=== PATIENT | female | born 1935 | race Caucasian/White ===

== ENCOUNTER 2018-06-23 07:58 | Inpatient (IN) | payer OTHER ==
[2018-06-23] MEDS ORDERED: ALTEPLASE 2 MG VIAL IVP PRN (10:22)
[2018-06-23] MEDS ORDERED: NALOXONE HCL 0.4 MG/ML INJ IVP PRN (10:22)
[2018-06-23] MEDS ORDERED: MIDAZOLAM 2 MG/2 ML VIAL IVP PRN (10:22)
[2018-06-23] MEDS ORDERED: HEPARIN 10,000 UNIT/10 ML MDV (1,000 UNIT/ML) IVP PRN (10:22)
[2018-06-23] MEDS ORDERED: GLUCAGON HCL 1 MG VIAL IVP PRN (10:22)
[2018-06-23] MEDS ORDERED: FLUMAZENIL 0.5 MG/5 ML MDV IVP PRN (10:22)
[2018-06-23] MEDS ORDERED: MEPERIDINE 25 MG/ML SYR IVP PRN (10:22)
[2018-06-23] MEDS ORDERED: ceFAZolin 2 GM/DEXTROSE 100 ML IV ONE (10:22)
[2018-06-23] MEDS ORDERED: PROTAMINE SULFATE 50 MG/5 ML VIAL IVP PRN (10:22)
--- NOTE | 2018-06-23 10:28 | PDRADPRE ---
Radiology History & Physical Indication for procedure: other (Symptomatic liver cyst) Home medications: MARCO-CITRATE PLUS VITAMIN D TAB 1,200 mg PO TID 06/19/18 [Last Taken Unknown] Dha Bradley 100 mg PO DAILY 06/19/18 [Last Taken Unknown] Iron 67 mg PO DAILY 06/19/18 [Last Taken Unknown] Levothyroxine Sodium 88 mcg PO DAILY 06/19/18 [Last Taken Unknown] Magnesium 250 mg PO DAILY 06/19/18 [Last Taken Unknown] Melatonin 5 mg 5 mg PO HS 06/19/18 [Last Taken Unknown] Multivitamin (*) 1 mg PO 06/19/18 [Last Taken Unknown] Sertraline HCl 50 mg PO DAILY 06/19/18 [Last Taken Unknown] amLODIPine BESYLATE 5 mg PO Q8HRS 06/19/18 [Last Taken Unknown] Allergies/Adverse Reactions: NSAIDS (Non-Steroidal Anti-Inflamma Allergy (Unknown, Verified 06/23/18 10:17) ANDRÉS Inhibitors Allergy (Verified 06/23/18 10:17) Beta-Blockers (Beta-Adrenergic Bloc Allergy (Verified 06/23/18 10:17) glipizide [From Glucotrol] Allergy (Verified 06/23/18 10:17) guaifenesin [From Robitussin] Allergy (Verified 06/23/18 10:17) hydrochlorothiazide Allergy (Verified 06/23/18 10:17) levofloxacin Allergy (Verified 06/23/18 10:17) nitrofurantoin [From Macrobid] Allergy (Verified 06/23/18 10:17) paroxetine Allergy (Verified 06/23/18 10:17) verapamil Allergy (Verified 06/23/18 10:17) Codeine Derivatives Allergy (Uncoded 06/23/18 10:17) Sulfa drugs Allergy (Uncoded 06/23/18 10:17) Mental status: A&Ox3 Heart exam: regular rate and rhythm Lungs exam: clear to auscultation Mallampati Score: Class 1
--- NOTE | 2018-06-23 10:29 | PDPROPOC ---
Sedation Plan of Care Sedation Plan of Care: vital signs stable, mental status noted, patient educated of risks, benefits, alternatives, patient can tolerate sedation ASA Classification: ASA 1 Planned drugs: fentanyl, midazolam Mallampati Score: Class 1 Mallampati Reference Image: Patient passed 3-3-2 rule?: Yes
[2018-06-23] MEDS ORDERED: NS 1,000 ML IV SCH ×2 (10:30→16:00)
[2018-06-23] MEDS ORDERED: ETHYL ALCOHOL 98% 5 ML AMP MISC ONE (10:45)
[2018-06-23] MEDS: fentaNYL 100 MCG/2 ML INJ IVP PRN ×2 (11:14→13:33)
[2018-06-23] MEDS ORDERED: IOPAMIDOL (ISOVUE-300) 100 ML BTL ONE (11:16)
[2018-06-23] MEDS ORDERED: LIDOCAINE 1% 300 MG/30 ML SDV ONE (11:24)
[2018-06-23] MEDS ORDERED: HYDROCODONE/APAP 5/325 TAB ONE (13:30)
[2018-06-23] MEDS ORDERED: fentaNYL 100 MCG/2 ML INJ ONE (13:30)
[2018-06-23] MEDS ORDERED: ONDANSETRON 4 MG/2 ML VIAL IVP PRN (13:57)
--- NOTE | 2018-06-23 13:59 | PDRADPN ---
Radiology Procedure Note Date of Procedure: 06/23/18 Radiologist: Buster Fernandez Anesthesia: IV Sedation Pre-op Diagnosis: Liver cyst Post-op Diagnosis: Superinfected liver cystg Indication: Symptomatic large hepatic cyst Procedure: Aborted sclerotherapy, 8 Fr drain placement Finding(s): Upon access of large liver cyst, thick brown purulent fluid was encountered. 1800 mL was drained, sample sent to micro for culture. 8 Fr drain left in place to JVAC. Inf/Abcess present in the surg proc area at time of surgery?: Yes Depth: Organ Space (Liver cyst) EBL: Minimal Drains: Constavac
[2018-06-23] MEDS ORDERED: ONDANSETRON DISINTEGRATING 4 MG TAB PO PRN (15:47)
[2018-06-23] MEDS ORDERED: ACETAMINOPHEN 325 MG TAB PO PRN (15:47)
--- NOTE | 2018-06-23 16:33 | PDGENHP ---
History and Physical - Chief Complaint purulent drainage - History of Present Illness This is a 82 yo female with long hx of liver cysts of unclear etiology. The pt was to undergo sclerotherapy of her liver cysts but the procedure was stopped due to 1800 ml of purulent fluid upon access of a liver lesion. Subsequently a decision to admit for further mgmt and evaluation was made. The pt was recently hospitalized at [facility] for UTI. It is unclear what abx were started. Leading up to today, she felt her typical self and did not have fever, malaise, weakness , or other. She is currently resting and appears to be comfortable. There is no Leukocytosis. BP is stable. She is on 3 L O2 but says she typically has nocturnal hypoxemia of 2 L. She denies any resp sx. She denies n/v/d, abd pain. No CV symptoms. She has not had any recent travel she has not had exposure to farm animals she has a hx of thyroid nodule, but no diagnosis of malignancy She had a drain placed today and the drainage does not look purulent. Labs: WBC 6.88 PMHx: nocturnal hypoxemia liver cysts HTN multiple abx allergy Hypothyroidism Urinary retention Diverticulosis PSHx: liver cysts sclerotherapy tonsillectomy, hysterectomy, cholecystectomy SocHx: no tobacco or etoh use FmHx: HTN, CHF History Information - Allergies/Home Medication List Allergies/Adverse Reactions: NSAIDS (Non-Steroidal Anti-Inflamma Allergy (Unknown, Verified 06/23/18 10:17) ANDRÉS Inhibitors Allergy (Verified 06/23/18 10:17) Beta-Blockers (Beta-Adrenergic Bloc Allergy (Verified 06/23/18 10:17) glipizide [From Glucotrol] Allergy (Verified 06/23/18 10:17) guaifenesin [From Robitussin] Allergy (Verified 06/23/18 10:17) hydrochlorothiazide Allergy (Verified 06/23/18 10:17) levofloxacin Allergy (Verified 06/23/18 10:17) nitrofurantoin [From Macrobid] Allergy (Verified 06/23/18 10:17) paroxetine Allergy (Verified 06/23/18 10:17) verapamil Allergy (Verified 06/23/18 10:17) Codeine Derivatives Allergy (Uncoded 06/23/18 10:17) Sulfa drugs Allergy (Uncoded 06/23/18 10:17) Home Medications: Calcium Citrate/Vitamin D2 [Eugene-Citrate Plus Vitamin D Tab] 1,200 mg PO DAILY18 06/23/18 [Last Taken 06/22/18 18:00] Ferrous Sulfate [Iron] 325 mg PO DAILY@1500 06/23/18 [Last Taken 06/22/18 15:00] Levothyroxine [Synthroid 88 mcg (*)] 88 mcg PO DAILY06 06/23/18 [Last Taken 02/05 06:00] Magnesium Oxide [Magnesium] 250 mg PO DAILY@1500 06/23/18 [Last Taken 06/22/18 15:00] Melatonin [Melatonin 5 mg] 5 mg PO HS 06/23/18 [Last Taken 06/22/18] Multivitamins [Multivitamin (*)] 1 each PO DAILY18 06/23/18 [Last Taken 18:00] [place]-3 Fatty Acids [Fish Oil 1000 mg (*)] 1,000 mg PO DAILY 06/23/18 [Last Taken 06/23/18 07:00] Sertraline HCl [Zoloft 50mg (*)] 50 mg PO DAILY 06/23/18 [Last Taken 06/23/18 07 :00] amLODIPine BESYLATE [Amlodipine Besylate] 5 mg PO BID 06/23/18 [Last Taken 06/23 07:00] I have personally reviewed and updated: medical history, social history - Social History Smoking Status: Never smoked Review of Systems Review of Systems: ROS: 10pt was reviewed & negative except for what was stated in HPI & below Physical Exam Physical Exam: Temp Pulse Resp BP Pulse Ox 36.4 C 63 15 114/75 100 06/23/18 15:03 06/23/18 15:03 06/23/18 15:03 06/23/18 15:03 06/23/18 15:03 O2 (L/minute) 3 Constitutional: no apparent distress Eyes: PERRL Ears, Nose, Mouth, Throat: moist mucous membranes, hearing normal Cardiovascular: regular rate and rhythym, No edema Respiratory: no respiratory distress, no rales or rhonchi, clear to auscultation Gastrointestinal: normoactive bowel sounds, soft, non-tender abdomen, other ( drain in place. non purulent drainage noted) Skin: warm Musculoskeletal: full muscle strength Neurologic: AAOx3 Psychiatric: interacting appropriately, not anxious, not encephalopathic Lymph, Heme, Immunologic: No petechiae Assessment & Plan Assessment: #Liver cyst with concern for abscess -drainage from drain appears to be non purulent. -has been afebrile and negative ROS -ID following, will monitor off abx for now and await cultures #Hypoxemia with nocturnal hypoxemia -currently on 3 L. She likely does not need. Will wean #HTN: -cont Amlodipine #Hypothyroidism -cont Levothyroxine -She reports that her dose was increased about 4 weeks ago, will obtain TSH #Urinary retention SCD's
[2018-06-23] MEDS: ERTAPENEM 1 GM in NS 100 ML IV SCH (16:55)
[2018-06-23] MEDS: FERROUS SULFATE 325 MG TAB PO SCH (16:55)
[2018-06-23] MEDS: MULTIVITAMINS 1 EACH TAB PO SCH (16:55)
[2018-06-23] MEDS: [UNRECOGNIZED DRUG - OTHER] PO SCH (16:56)
[2018-06-23] MEDS: OXYCODONE/APAP 5/325 TAB PO PRN ×2 (17:18→21:27)
--- NOTE | 2018-06-23 18:36 | GCON ---
[f rep st] CONSULTATION INFECTIOUS DISEASE CONSULTATION. DATE OF CONSULTATION: 06/23/2018 REQUESTING PROVIDER: Dr. Buster Fernandez. REASON FOR CONSULTATION: Hepatic abscess. HISTORY OF PRESENT ILLNESS: Patient is an 82-year-old female with a long history of 1 giant cyst ove r the last 2 years, who I am asked to see in consultation for hepatic abscess. The patient has been undergoing sclerotherapy of her giant hepatic cyst at [facility] on a recurring basis. She descr ibes having a drain in place up until March of this year. That was the last episode of scleral therapy . She had been hospitalized at one point in time with fever and chills, with evaluation including to assess for infection in the cyst. Cultures on multiple occasions, which I reviewed in [facility] were n egative. Fever was ultimately attributed to urinary tract infection. The patient describes receivin g 3 different antibiotics orally. She was referred from her business support administrator to [facility] for repeat sclerotherapy today. However, sclerotherapy was aborted because upon access of the large liver cyst, thick brown purulent material was encountered with a volume of 1800 mL removed. She garcia s not describe having ongoing fever, chills, or night sweats. She has not had significant right uppe r quadrant pain. She does not feel ill otherwise. No urinary symptoms. She had traveled to [place] in 2004. No unusual animal exposures. Previous testing reviewed in [facility] shows a negative QuantiFE ALESSIO assay and negative Echinococcal antibody. She does describe losing a crown yesterday, but no oth er recent dental problems. Given the above findings, I was asked to assist in her ongoing management . PAST MEDICAL HISTORY: Multiple hepatic cysts, including giant hepatic cyst which has undergone scler otherapy on multiple occasions; etiology of cyst has remained unclear with 1 cytologic specimen in past being negative; nocturnal hypoxemia; hypertension; hypothyroidism; urinary retention requiring urinary self-catheterization; diverticulosis. PAST SURGICAL HISTORY: Sclerotherapy as above, cholecystectomy, hysterectomy, tonsillectomy. CURRENT MEDICATIONS: Calcium 1200 mg orally daily, ferrous sulfate 325 mg p.o. daily, Synthroid 88 m cg p.o. daily, magnesium 250 mg p.o. daily, melatonin 5 mg p.o. at bedtime, multivitamin p.o. daily, fish oil 1000 mg p.o. daily, Zoloft 50 mg p.o. daily, amlodipine 5 mg p.o. twice daily. ALLERGIES: Levofloxacin associated with arthropathy, nitrofurantoin, paroxetine, verapamil, sulfonam ides, hydrochlorothiazide, guaifenesin, glipizide, beta blockers, ANDRÉS inhibitors, nonsteroidals. SOCIAL HISTORY: Patient does not smoke or drink alcohol. She is a retired nurse. FAMILY HISTORY: Hypertension, congestive heart failure. REVIEW OF SYSTEMS: Outside of that noted in the HPI, the remainder of 10-system review is unremarkab le. PHYSICAL EXAMINATION: VITAL SIGNS: Temperature 36.1, heart rate 69, respiratory rate 16, blood pres sure 137/70, oxygen saturation 87% on room air. GENERAL: Patient is well nourished, well developed, in no acute distress. She appears nontoxic. HEENT: No scleral icterus, conjunctival injection, or conjunctival petechiae. Oropharynx shows moist mucous membranes with dentition in fair repair. The re is no nasal discharge. There is no tenderness over the sinuses. NECK: Supple without palpable l ymphadenopathy or thyromegaly. CHEST: Clear to auscultation bilaterally without adventitious sounds . The respiratory effort is normal. CARDIOVASCULAR: Regular rate and rhythm without murmurs, noble ps, or rubs. ABDOMEN: Soft, nontender, nondistended. Drain is present in the right upper quadrant with serous brown output. No purulence is noted in the KAY bulb. MUSCULOSKELETAL: No cyanosis, club jose alfredo, or edema. SKIN: No rashes present. No stigmata of endocarditis. Skin is warm and dry to [place] . NEUROLOGIC: Patient is alert and interacts appropriately. Cranial nerves II through XII grossl y intact. Sensation is grossly intact. Muscle tone and bulk are normal. LYMPHATICS: No cervical o r supraclavicular nodes. LABORATORY DATA: White blood cell count 6.9, hematocrit 37.4, platelets 159, neutrophils 44%, lympho cytes 43%. Gram stain shows 4+ white blood cells with no organisms being seen; I reviewed the materi al present grossly in the laboratory, which is consistent with purulent fluid. IMPRESSION: Hepatic abscess: Large volume of purulent material removed from prior large hepatic cys t cavity which has undergone sclerotherapy. Fluid draining into KAY bulb currently appears to be more serous in nature. I have confirmed the purulent character of this fluid by evaluation of the specim en in the laboratory. It is possible that she has developed superinfection of her hepatic cyst assoc iated with prior sclerotherapy. Most likely, this will be due to enteric juan, although it is somew hat unusual that a patient has no systemic symptoms such as fever or chills and is without leukocytos is. Other considerations would include infection from AFB or fungi (no previous cultures for these e ntities). Amebic liver abscess would also be a consideration, although prior aspirations have not divehi elded purulent material. RECOMMENDATIONS: 1. We will add AFB and fungal cultures onto specimen and laboratory. 2. Await culture data as available. 3. Blood cultures x2 sets. 4. Begin ertapenem 1 g IV q.24 hours after blood cultures obtained. 5. Will check Entamoeba histolytica antibody. 6. Further plan dependent on data as available and culture findings. Thank you for this consultation. We will continue to follow the patient with you. /[id number]/MODL
[2018-06-23] MEDS: amLODIPine BESYLATE 5 MG TAB PO SCH (21:26)
[2018-06-23] MEDS: MELATONIN 3 MG TAB PO SCH (21:27)
[2018-06-24] MEDS: LEVOTHYROXINE 88 MCG TAB PO SCH (05:41)
[2018-06-24 05:42] LABS: PLATELET COUNT 147 10^3/uL (150-400)
[2018-06-24] MEDS: ERTAPENEM 1 GM in NS 100 ML IV SCH (09:38)
[2018-06-24] MEDS: OMEGA-3 FATTY ACIDS 1,000 MG CAP PO SCH (09:38)
[2018-06-24] MEDS: SERTRALINE HCL 50 MG TAB PO SCH (09:40)
[2018-06-24] MEDS: OXYCODONE/APAP 5/325 TAB PO PRN ×2 (09:55→21:13)
[2018-06-24] MEDS: amLODIPine BESYLATE 5 MG TAB PO SCH ×2 (10:22→21:13)
--- NOTE | 2018-06-24 12:59 | HOSPPROG ---
Hospitalist Progress Note Assessment/Plan: #Hepatic abscess -cont Ertapenem -await cultures -ID following #Liver cysts #nocturnal hypoxemia -supplemental O2 nightly #HTN: -low BP this morning, Amlodipine held this a.m. #Hypothyroidism -cont Levothyroxine -TSH is at goal #Urinary retention, no retention reported today SCD's Inpatient while awaiting cultures Subjective: no cp or sob. no n/v/d. afebrile. Objective: Vital Signs Temp Pulse Resp BP Pulse Ox 37.2 C 74 12 122/59 H 91 L 06/24/18 11:21 06/24/18 11:21 06/24/18 11:21 06/24/18 11:21 06/24/18 11:21 Microbiology 06/23/18 12:00 Gram Stain - Final Liver - Aspirate Laboratory Results 06/24/18 04:44 06/24/18 04:44 06/23/18 06/24/18 06/25/18 05:59 05:59 05:59 Intake Total 120 Output Total 4325 1060 Balance -4205 -1060 - Physical Exam Constitutional: no apparent distress Eyes: PERRL, EOMI Ears, Nose, Mouth, Throat: moist mucous membranes, hearing normal Cardiovascular: regular rate and rhythym, No edema Respiratory: no respiratory distress, no rales or rhonchi, clear to auscultation Gastrointestinal: normoactive bowel sounds, soft, non-tender abdomen Skin: warm Musculoskeletal: full muscle strength Neurologic: AAOx3 Psychiatric: interacting appropriately, not encephalopathic Lymph, Heme, Immunologic: No petechiae ICD10 Worksheet Patient Problems: Problems Problem Status Onset Liver abscess Acute - ICD10 Problem Qualifiers (1) Liver abscess
--- NOTE | 2018-06-24 14:51 | PDMN ---
Medical Necessity Medical necessity: Pt meets INPT criteria per MD as of 06/24/18 and [facility] G[facility]ology GRG (hepatic abscess s/p drainage of purulent fluid upon access of a liver lesion; KAY drain placed with ongoing drainage noted; requiring IV Invanz).
--- NOTE | 2018-06-24 15:38 | ASMTCMCOM ---
CM Note CM Note Notes: Pt was admitted with a liver cyst abcess. She has a hx of liver cyst, HTN, diverticulitis. ID is following - pt is currently on ertapenum and cultures are pending. CM will follow for any d/c needs. Date Signed: 06/24/2018 03:37 PM Electronically Signed By:FINN Nath
--- NOTE | 2018-06-24 15:39 | PCMIDPN ---
Assessment/Plan: Assessment/Plan: * Hepatic abscess/infected hepatic cyst status post drainage: Cultures no growth to date. Most likely will be associated with enteric juan including potential for anaerobic juan. Also have sent Entamoeba histolytica antibody for completeness. Continue ertapenem in interim. Modify antibiotic therapy accordingly as culture results available. 06/24/18 15:36 Subjective: Patient feels fatigued today. Pain at drain insertion. Objective: Vital Signs Temp Pulse Resp BP Pulse Ox 37.2 C 74 12 122/59 H 91 L 06/24/18 11:21 06/24/18 11:21 06/24/18 11:21 06/24/18 11:21 06/24/18 11:21 Microbiology 06/23/18 12:00 Gram Stain - Final Liver - Aspirate Laboratory Results 06/24/18 04:44 06/24/18 04:44 06/23/18 06/24/18 06/25/18 05:59 05:59 05:59 Intake Total 120 Output Total 4325 1060 Balance -4205 -1060 Ertapenem # 2 Hepatic abscess 4+ white blood cells, Gram stain negative, culture no growth to date - Physical Exam General Appearance: alert, no apparent distress EENT: pharynx normal, No scleral icterus, No conjunctival petechiae Respiratory: lungs clear, No respiratory distress Cardiac/Chest: regular rate, rhythm Extremities: No inflammation Abdomen: non-tender, other (Clear brown fluid in KAY bulb), No distended ICD10 Worksheet Patient Problems: Problems Problem Status Onset Liver abscess Acute
--- NOTE | 2018-06-24 16:49 | SOAPPROG ---
SOAP Progress Note Assessment/Plan: Assessment: POD#1 drain placement liver cyst with viscous, brown, purulent fluid. Fluid has returned to thin, clear, yellow serous. Plan: OK to D/C with drain in place. Continue to monitor output and return to IR in one week for CT abdomen noncontrast to evaluate residual fluid/loculations and possible sclerotherapy and drain removal at that time. 06/24/18 16:46 Subjective: Denies subjective fever, chills, night sweats. Minimal pain at drain insertion site. Objective: Vital Signs Temp Pulse Resp BP Pulse Ox 37.2 C 74 12 122/59 H 91 L 06/24/18 11:21 06/24/18 11:21 06/24/18 11:21 06/24/18 11:21 06/24/18 11:21 Microbiology 06/23/18 12:00 Mycobacterial Smear (ED) - Final Liver - Aspirate 06/23/18 12:00 Gram Stain - Final Liver - Aspirate Laboratory Results 06/24/18 04:44 06/24/18 04:44 06/23/18 06/24/18 06/25/18 05:59 05:59 05:59 Intake Total 120 550 Output Total 4325 1060 Balance -4205 -510 Drain output now serous. ICD10 Worksheet Patient Problems: Problems Problem Status Onset Liver abscess Acute
[2018-06-24] MEDS: FERROUS SULFATE 325 MG TAB PO SCH (16:52)
[2018-06-24] MEDS: [UNRECOGNIZED DRUG - OTHER] PO SCH (18:16)
[2018-06-24] MEDS: MULTIVITAMINS 1 EACH TAB PO SCH (18:16)
--- NOTE | 2018-06-24 18:53 | SOAPPROG ---
SOAP Progress Note Assessment/Plan: Assessment:Plan: social visit appreciate IR and ID input her drain output is now serosanguineous and not purulent will follow on chart thank you Bony Kamara MD [phone] 06/24/18 18:52 Objective: Vital Signs Temp Pulse Resp BP Pulse Ox 36.6 C 64 14 146/53 H 91 L 06/24/18 16:00 06/24/18 16:00 06/24/18 16:00 06/24/18 16:00 06/24/18 16:00 Microbiology 06/23/18 12:00 Mycobacterial Smear (ED) - Final Liver - Aspirate 06/23/18 12:00 Gram Stain - Final Liver - Aspirate Laboratory Results 06/24/18 04:44 06/24/18 04:44 06/23/18 06/24/18 06/25/18 05:59 05:59 05:59 Intake Total 120 750 Output Total [id number] [facility] -4205 -840 ICD10 Worksheet Patient Problems: Problems Problem Status Onset Liver abscess Acute
[2018-06-24] MEDS: MELATONIN 3 MG TAB PO SCH (21:14)
[2018-06-25] MEDS: LEVOTHYROXINE 88 MCG TAB PO SCH (06:12)
[2018-06-25] MEDS: amLODIPine BESYLATE 5 MG TAB PO SCH (09:31)
[2018-06-25] MEDS: SERTRALINE HCL 50 MG TAB PO SCH (09:31)
[2018-06-25] MEDS: OMEGA-3 FATTY ACIDS 1,000 MG CAP PO SCH (09:31)
[2018-06-25] MEDS: ERTAPENEM 1 GM in NS 100 ML IV SCH (10:12)
--- NOTE | 2018-06-25 12:28 | ASMTCMCOM ---
CM Note CM Note Notes: Care Management chart review. Patient likely to discharge today, plan is to d/c with drain and follow up with IR in one week for CT and drain removal. CM spoke with RN, currently waiting on cultures. CM to follow. Current discharge plan: Home independent, likely today or tomorrow. Date Signed: 06/25/2018 12:27 PM Electronically Signed By:Destini Chavez
--- NOTE | 2018-06-25 13:06 | HOSPPROG ---
Hospitalist Progress Note Assessment/Plan: #Hepatic abscess -cont Ertapenem -await cultures -ID following #Liver cysts #nocturnal hypoxemia -supplemental O2 nightly #HTN: -I will decrease her Amlodipine dosing to once daily given some low BP yesterday. #Hypothyroidism -cont Levothyroxine -TSH is at goal #Urinary retention, no retention reported today SCD's Inpatient while awaiting cultures Dispo: waiting for cultures Subjective: no cp or sob. no overnight events Objective: Vital Signs Temp Pulse Resp BP Pulse Ox 36.9 C 70 16 121/66 H 96 06/25/18 11:08 06/25/18 11:08 06/25/18 11:08 06/25/18 11:08 06/25/18 11:08 Microbiology 06/23/18 12:00 Gram Stain - Final Liver - Aspirate 06/23/18 12:00 Mycobacterial Smear (ED) - Final Liver - Aspirate Laboratory Results 06/24/18 04:44 06/24/18 04:44 06/24/18 06/25/18 06/26/18 05:59 05:59 05:59 Intake Total 120 750 350 Output Total 4325 2020 800 Balance -4205 -1270 -450 - Physical Exam Constitutional: no apparent distress Eyes: PERRL Ears, Nose, Mouth, Throat: moist mucous membranes, hearing normal Cardiovascular: regular rate and rhythym Respiratory: no respiratory distress Gastrointestinal: normoactive bowel sounds, other (drain with serosanguineous fluid) Skin: warm Musculoskeletal: full muscle strength Neurologic: AAOx3 Psychiatric: interacting appropriately, not anxious, not encephalopathic Lymph, Heme, Immunologic: No petechiae ICD10 Worksheet Patient Problems: Problems Problem Status Onset Liver abscess Acute - ICD10 Problem Qualifiers (1) Liver abscess
--- NOTE | 2018-06-25 15:09 | PCMIDPN ---
Assessment/Plan: Assessment/Plan: * Hepatic abscess/infected hepatic cyst status post drainage: Cultures remain no growth to date. Potentially could be related to anaerobic juan which will grow more slowly. Continue ertapenem while awaiting cultures. If cultures are no growth tomorrow, anticipate change to oral Augmentin x2 weeks total with discharge home and continued followup of cultures as outpatient. Also will consider sending sample for multiplex PCR at the [facility] if cultures remain negative. Output from drain remains non purulent. 06/25/18 15:05 Subjective: Patient with mild right upper quadrant pain at drain site. Eager to be discharged. No diarrhea. Objective: Vital Signs Temp Pulse Resp BP Pulse Ox 36.9 C 70 16 121/66 H 96 06/25/18 11:08 06/25/18 11:08 06/25/18 11:08 06/25/18 11:08 06/25/18 11:08 Microbiology 06/23/18 12:00 Gram Stain - Final Liver - Aspirate 06/23/18 12:00 Mycobacterial Smear (ED) - Final Liver - Aspirate Laboratory Results 06/24/18 04:44 06/24/18 04:44 06/24/18 06/25/18 06/26/18 05:59 05:59 05:59 Intake Total 120 750 350 Output Total 4325 2020 1200 Balance -4205 -1270 -850 Ertapenem # 3 Hepatic cultures no growth to date Blood cultures x2 no growth Entamoeba histolytica antibody pending - Physical Exam General Appearance: alert, no apparent distress EENT: No scleral icterus Respiratory: lungs clear, No respiratory distress Cardiac/Chest: regular rate, rhythm, systolic murmur (2/6 left upper sternal border) Abdomen: non-tender, other (Serous brown fluid in KAY bulb), No distended ICD10 Worksheet Patient Problems: Problems Problem Status Onset Liver abscess Acute
[2018-06-25] MEDS: FERROUS SULFATE 325 MG TAB PO SCH (15:42)
[2018-06-25] MEDS: [UNRECOGNIZED DRUG - OTHER] PO SCH (17:36)
[2018-06-25] MEDS ORDERED: POLYETHYLENE GLYCOL 3350 17 GM PKT PO PRN (17:37)
[2018-06-25] MEDS ORDERED: LACTULOSE 20 GM/30 ML UDCUP PO PRN (17:37)
[2018-06-25] MEDS ORDERED: MAGNESIUM HYDROXIDE 30 ML UDCUP PO PRN (17:37)
[2018-06-25] MEDS: MULTIVITAMINS 1 EACH TAB PO SCH (17:37)
[2018-06-25] MEDS ORDERED: BISACODYL 10 MG SUPP PR PRN (17:37)
[2018-06-25] MEDS: SENNOSIDES/DOCUSATE SODIUM TAB PO SCH ×2 (17:57→21:33)
[2018-06-25] MEDS: MELATONIN 3 MG TAB PO SCH (21:33)
[2018-06-26] MEDS: LEVOTHYROXINE 88 MCG TAB PO SCH (05:29)
[2018-06-26] MEDS: ERTAPENEM 1 GM in NS 100 ML IV SCH (09:56)
[2018-06-26] MEDS: amLODIPine BESYLATE 5 MG TAB PO SCH (10:57)
[2018-06-26] MEDS: SENNOSIDES/DOCUSATE SODIUM TAB PO SCH (10:57)
[2018-06-26] MEDS: OMEGA-3 FATTY ACIDS 1,000 MG CAP PO SCH (10:58)
[2018-06-26] MEDS: SERTRALINE HCL 50 MG TAB PO SCH (10:58)
--- NOTE | 2018-06-26 12:56 | PDDCSUM ---
Discharge Summary Discharge Summary: DISCHARGE DIAGNOSES: * hepatic abscess * prior history of multiple hepatic cysts with sclerotherapy and drainage CONSULTANTS: Dr. Christopher Trevino infectious diseases PROCEDURES: Aspiration of 1800 mL of purulent fluid from large hepatic cyst under ultrasound guidance HOSPITAL COURSE SUMMARY: This patient who has a prior history of multiple hepatic cysts previous clear therapies and drainage procedures, comes in electively for drainage of a large hepatic cyst at this time. However the time of access of the cyst a dark thick brown purulent fluid was obtained from cyst. 1800 mL was drained from the cyst. There is no fever and the patient was not septic. However because of the findings clinically the patient was admitted the hospital and started on antibiotic treatment for further assessment. Cultures had been sent. Initial Gram stain and AFB stains are negative. So far nothing is growing in cultures. She has remained afebrile without any signs of sepsis peritonitis or any other complications. At this point is elected to continue antibiotics orally and the patient is stable and so can be discharged home. She will be followed up in the Infectious Disease Clinic. She will need to follow up again in the imaging department for further management of this cyst eventually. Patient does have a Ifeanyi-Contreras drain in place and this will stay in place until follow-up. PENDING TEST RESULTS: Final bacterial, fungal, and acid-fast bacilli cultures from abscess fluid from liver MEDICATION CHANGES: Addition of Augmentin 875 mg twice daily for 14 days FOLLOW-UP PLAN: With Dr. Trevino in [facility] next week Greater than 35 minutes bedside and care coordination time today
--- NOTE | 2018-06-26 14:38 | PCMIDPN ---
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 Still possible anaerobic juan will grow as these often take more time. If culture remains negative, will refer specimen to [facility] for multiplex PCR. Given clinical stability and serous drainage currently, will transition to oral Augmentin x2 weeks to complete therapy. Will review with Interventional Radiology regarding timing of next anticipated sclerotherapy. Side effects of Augmentin including potential for allergic reactions and diarrhea discussed with patient. 06/26/18 14:32 Subjective: Patient without significant complaints other than mild right upper quadrant pain where drain in place; also notes constipation. Objective: Vital Signs Temp Pulse Resp BP Pulse Ox 36.9 C 65 14 121/58 H 89 L 06/26/18 11:53 06/26/18 11:53 06/26/18 11:53 06/26/18 11:53 06/26/18 11:53 Microbiology 06/23/18 12:00 Gram Stain - Final Liver - Aspirate Laboratory Results 06/24/18 04:44 06/24/18 04:44 06/25/18 06/26/18 06/27/18 05:59 05:59 05:59 Intake Total 750 350 Output Total 2019 3000 800 Balance -1270 -2650 -800 Ertapenem # 4 Hepatic abscess cultures no growth to date Entamoeba histolytica antibody pending - Physical Exam General Appearance: alert, no apparent distress EENT: No scleral icterus, No conjunctival petechiae Respiratory: lungs clear, No respiratory distress Cardiac/Chest: regular rate, rhythm Abdomen: non-tender, distended, other (Right upper quadrant drain with brown serous fluid) ICD10 Worksheet Patient Problems: Problems Problem Status Onset Liver abscess Acute
[2018-06-26] MEDS: FERROUS SULFATE 325 MG TAB PO SCH (15:09)
[2018-06-26 15:36] VITALS: BP 127/62
== END 2018-06-26 17:12 | disposition home or self-care (01) | DRG 443 ==
LOC: FIMAGING 07:58 → F3N 13:34 → F3E 14:09 → OBSVTOIN 06-24 14:18
PROVIDERS: ADMIT Family Medicine; ATTEND Family Medicine
PROC: 0F9030Z Drainage of Liver with Drainage Device, Percutaneous Approach (ICD-10-PCS; principal; 2018-06-23 12:05)
DX: K75.0 Abscess of liver (principal); G47.36 Sleep related hypoventilation in conditions classified elsewhere; I10 Essential (primary) hypertension; E03.9 Hypothyroidism, unspecified; R33.9 Retention of urine, unspecified
CPT/HCPCS: 86753-90; C1729; C1769; G0378; J0690; J1335; J2250; J3010; Q9967